=== PATIENT | male | born 1960 | race American Indian/Alaskan Native ===

== ENCOUNTER 2017-04-13 17:04 | Emergency (ER) | payer MEDICARE ==
[2017-04-13 18:05] LABS: Urine Drugs of Abuse Note Disclamer
[2017-04-13] MEDS ORDERED: BABY ASPIRIN PO ONE (18:11)
[2017-04-13] MEDS ORDERED: CATAPRES PO ONE (18:11)
--- NOTE | 2017-04-13 18:20 | Emergency Department Report ---
Entered by TIRSO SOSA, acting as scribe for JOESPH BOWLING PA. Chief Complaint: Medical Clearance Stated Complaint: HBP Time Seen by Provider: 04/13/17 18:05 - HPI History of Present Illness: Pt c/o elevated blood pressure that began today. Patient states he went to [facility] for admission. They said his bp was elevated and he needed to come to the ED to get medically cleared. In the ED, patient also c/o left sided chest pain and dizziness that began [employer]. Reports nausea. Reports headache. Reports confusion previously but is alert to person place and time today. Denies vomiting. PMHx of HTN and schizophrenia. Notes compliancy to bp medication and he states he took his bp medication today. - ROS Review of Systems: All systems are negative unless stated in HPI above. - Exam Vital Signs: Vital Signs 04/13/17 17:51 Temperature 97.5 F L Pulse Rate 74 Respiratory 16 Rate Blood Pressure 187/101 O2 Sat by Pulse 100 Oximetry Physical Exam: 56 y/o male that is well nourished, well developed, nontoxic in appearance, and in no acute distress Psych: Normal mood. Normal affect. MSE screening note: Focused history and physical exam performed. Due to findings the following was ordered: CXR CBC Chem Troponin EKG Urine Drug screen urinalysis [facility] ED Medical Decision Making - Medical Decision Making Patient was seen by provider in triage area. ED Disposition for MSE Condition: Stable This documentation as recorded by the scribe,TIRSO SOSA,accurately reflects the service I personally performed and the decisions made by ,JOESPH BOWLING PA.
[2017-04-13 18:21] LABS: Bilirubin,Urine NEG (Negative); Blood,Urine NEG (Negative); Ketones,Urine NEG (Negative); Leukocyte Esterase,Urine NEG (Negative); Mucus,Urine FEW /HPF; Nitrite,Urine NEG (Negative); Protein,Urine <15 mg/dL mg/dL (Negative); Urobilinogen,Urine < 2.0 mg/dL (<2.0)
[2017-04-13 18:54] LABS: Basophils % (Auto) 0.7 % (0.0-1.8); Hematocrit 44.2 % (35.5-45.6); Hemoglobin 14.5 gm/dl (11.8-15.2); Mean Corpuscular HGB Conc 33 % (32-34); Mean Corpuscular Hemoglobin 30 pg (28-32); Mean Corpuscular Volume 92 fl (84-94); Platelet Count 138 K/mm3 (140-440); Red Cell Distribution Width 13.5 % (13.2-15.2); White Blood Count 7.5 K/mm3 (4.5-11.0)
[2017-04-13 19:06] LABS: Anion Gap 20 mmol/L; Blood Urea Nitrogen 14 mg/dL (9-20); Carbon Dioxide 24 mmol/L (22-30); Glucose 83 mg/dL (75-100); Potassium 3.8 mmol/L (3.6-5.0); Sodium 139 mmol/L (137-145)
[2017-04-13 19:08] LABS: Creatine Kinase MB 2.7 ng/mL (0.0-4.0)
[2017-04-13 19:09] LABS: Creatine Kinase 222 units/L (55-170)
[2017-04-14 00:51] LABS: Creatine Kinase MB 2.6 ng/mL (0.0-4.0)
[2017-04-14 00:53] LABS: Creatine Kinase 201 units/L (55-170)
[2017-04-14] MEDS ORDERED: NORVASC PO ONE (02:51)
--- NOTE | 2017-04-14 02:52 | Emergency Department Report ---
ED Medical Clearance HPI - General Chief complaint: High BP Stated complaint: HBP Time Seen by Provider: 04/14/17 02:16 Source: patient Mode of arrival: Ambulatory - History of Present Illness Initial comments: Pt is a 56-year-old male with a history of psych disorder on Seroquel who presents to the ER for medical clearance. Patient reports he went to [facility] today to have his medication adjusted upon triage she was found to have hypertension and sent to the ER for evaluation. Patient reports he takes losartan 100 mg daily but reports it at this not work for him. Otherwise patient denies any suicidal ideation and homicidal ideations, delusions, hallucinations. Patient also denies fevers, chills, nausea, vomiting, diarrhea , chest pain, shortness of breath, abdominal pain, extremity pain, travel, or sick contacts. Home medications: Previous Rx's Medication Instructions Recorded Last Taken Type amLODIPine [Norvasc] 10 mg PO DAILY #30 tab 04/14/17 Unknown Rx Allergies/Adverse reactions: Allergies Allergy/AdvReac Type Severity Reaction Status Date / Time No Known Allergies Allergy Verified 06/25/14 01:47 ED Review of Systems ROS: Stated complaint: HBP Other details as noted in HPI Comment: All other systems reviewed and negative ED Past Medical Hx - Past Medical History Hx Hypertension: Yes Hx Psychiatric Treatment: Yes (schizophrenia) Additional medical history: HEP B AND C - Surgical History Past Surgical History?: Yes Additional Surgical History: LEFT FOOT SURGERY - Social History Smoking Status: Current Every Day Smoker Substance Use Type: Alcohol - Medications Home Medications: Home Medications Medication Instructions Recorded Confirmed Last Taken Type amLODIPine [Norvasc] 10 mg PO DAILY #30 tab 04/14/17 Unknown Rx ED Physical Exam - General Limitations: No Limitations General appearance: alert, in no apparent distress - Head Head exam: Present: atraumatic, normocephalic - Eye Eye exam: Present: normal appearance - ENT ENT exam: Present: mucous membranes moist - Neck Neck exam: Present: normal inspection - Respiratory Respiratory exam: Present: normal lung sounds bilaterally. Absent: respiratory distress - Cardiovascular Cardiovascular Exam: Present: regular rate, normal rhythm. Absent: systolic murmur, diastolic murmur, rubs, gallop - GI/Abdominal GI/Abdominal exam: Present: soft, normal bowel sounds - Rectal Rectal exam: Present: deferred - Extremities Exam Extremities exam: Present: normal inspection - Back Exam Back exam: Present: normal inspection - Neurological Exam Neurological exam: Present: alert, oriented X3 - Psychiatric Psychiatric exam: Present: normal affect, normal mood - Skin Skin exam: Present: warm, dry, intact, normal color. Absent: rash ED Course Vital Signs 04/13/17 04/13/17 04/13/17 17:51 18:48 21:33 Temperature 97.5 F L Pulse Rate 74 74 64 Respiratory 16 18 Rate Blood Pressure 187/101 187/101 Blood Pressure 166/96 [Right] O2 Sat by Pulse 100 100 Oximetry 04/14/17 04/14/17 04/14/17 02:28 02:33 03:14 Temperature 97.5 F L Pulse Rate 66 75 Respiratory 20 20 Rate Blood Pressure 178/96 Blood Pressure 178/96 [Right] O2 Sat by Pulse 99 99 Oximetry 04/14/17 04:02 Temperature Pulse Rate 65 Respiratory 20 Rate Blood Pressure Blood Pressure 165/76 [Right] O2 Sat by Pulse 98 Oximetry - Reevaluation(s) Reevaluation #1: 04/14/17 04:41 Pt re-examined after Norvasc 10mg, repeat BP: 153/84 HR: 74 Pt to be discharged with Norvasc 10mg daily ED Medical Decision Making - Lab Data Result diagrams: 04/13/17 18:32 04/13/17 18:32 - EKG Data 04/14/17 03:20 Time 1843. Since rhythm at 68 bpm, QTC 452 ms, normal axis, no LVH, T-wave inversions in the inferior leads, no ST changes, no STEMI ED Disposition Clinical Impression: Hypertension Disposition: DISCHARGED TO HOME OR SELFCARE Is pt being admited?: No Condition: Stable Instructions: Hypertension (ED) Prescriptions: amLODIPine [Norvasc] 10 mg PO DAILY #30 tab Referrals: PRIMARY CARE, [Primary Care Provider] - 3-5 Days
[2017-04-14 04:48] VITALS: BP 154/81
--- NOTE | 2017-04-14 07:26 | XRay Report ---
ROUTINE CHEST, TWO VIEWS: HISTORY: Chest pain, congestion or. The trachea, heart, mediastinal contour, lung barker and bony thorax are unremarkable. IMPRESSION: Unremarkable chest x-ray.
== END 2017-04-14 05:00 | disposition home or self-care (01) ==
LOC: ED 17:04
DX: I10 Essential (primary) hypertension (principal); F20.9 Schizophrenia, unspecified; F17.200 Nicotine dependence, unspecified, uncomplicated; Z86.19 Personal history of other infectious and parasitic diseases
CPT/HCPCS: 36415; 71020; 80048; 80307; 81001; 82550; 82553; 84484; 85025; 93005; 93010; 99284; G0480; 80320

== ENCOUNTER 2020-02-05 08:53 | Emergency (ER) | payer MEDICARE ==
[2020-02-05 08:59] VITALS: BP 132/76
== END 2020-02-05 19:50 | disposition left against medical advice (07) ==
LOC: ED 08:53
DX: R41.0 Disorientation, unspecified (principal); Z53.21 Procedure and treatment not carried out due to patient leaving prior to being seen by health care provider